=== PATIENT | female | born 1985 | race Caucasian/White ===

== ENCOUNTER → 2019-11-13 08:37 | Outpatient (CLI) | payer OTHER, SELFPAY ==
--- NOTE | 2019-11-13 08:39 | DI.US.S_ITS ---
LIMITED ULTRASOUND OF LEFT BREAST: 11/13/2019 CLINICAL: Palpable left breast lump. No prior exams were available for comparison. Color flow and Doppler ultrasound of the left breast 2 o'clock region were performed. [place] scale images of the real-time examination were reviewed. No significant abnormalities were seen sonographically in the left breast. There are a few tiny scattered simple cysts which in the setting of pain is suggestive of fibrocystic change. IMPRESSION: NEGATIVE There is no sonographic evidence of malignancy. There are a few tiny scattered simple cysts which in the setting of pain is suggestive of fibrocystic change. This exam was interpreted at Station ID: [id number]. Electronically Signed By: Eric Kirk M.D. jr/:11/13/2019 11:11:13 letter sent: Normal Exam Ultrasound BI-RADS: 1 Negative
--- NOTE | 2019-11-13 08:39 | DI.MG.S_ITS ---
BILATERAL DIGITAL DIAGNOSTIC MAMMOGRAM 3D/2D: 11/13/2019 CLINICAL: Baseline exam. Left breast lump. No prior exams were available for comparison. The tissue of both breasts is extremely dense, which lowers the sensitivity of mammography. There is a 0.9 cm oval mass with an obscured and indistinct margin in the RIGHT breast central to the nipple middle depth 4 cm from the nipple. There a 1 cm oval mass with an obscured and indistinct margin in the RIGHT breast at 11 o'clock anterior depth 2.5 cm from the nipple. There is a 1.1 cm oval mass with an obscured and indistinct margin in the RIGHT breast anterior depth superior region seen on the mediolateral oblique view only 2.5 cm from the nipple. There is a 1 cm oval mass with an obscured and indistinct margin in the LEFT breast at 7 o'clock middle depth 7 cm from the nipple. No other significant masses or calcifications are seen in either breast. IMPRESSION: INCOMPLETE: NEEDS ADDITIONAL IMAGING EVALUATION One mass in the left breast and three masses in the right breast, all indistinct with obscured margins. In a patient of this age, these most likely represent fibroadenomata, although this is not definitive. A bilateral breast ultrasound is recommended for further evaluation, and is scheduled to immediately follow this examination. This exam was interpreted at Station ID: [id number]. NOTE: For mammograms, a report in lay terms will be sent to the patient. Approximately 15% of breast malignancies will not be visualized mammographically. In the management of a palpable breast mass, a negative mammogram must not discourage biopsy of a clinically suspicious lesion. Electronically Signed By: Eric Kirk M.D. jr/:11/13/2019 09:23:58 ACR BI-RADS Category 0: Incomplete [id number]
--- NOTE | 2019-11-13 10:26 | DI.US.S_ITS ---
LIMITED ULTRASOUND OF RIGHT BREAST: 11/13/2019 CLINICAL: Abnormal mammogram right breast. Comparison is made to exams dated: 11/13/2019 ultrasound and 11/13/2019 mammogram - [facility]. Color flow and real-time ultrasound of the right breast 10-12 o'clock region were performed. [place] scale images of the real-time examination were reviewed. No significant abnormalities were seen sonographically in the right breast. There are a few tiny scattered simple cysts which in the setting of pain is suggestive of fibrocystic change. IMPRESSION: NEGATIVE There is no sonographic evidence of malignancy. There are a few tiny scattered simple cysts which in the setting of pain is suggestive of fibrocystic change. This exam was interpreted at Station ID: [id number]. Electronically Signed By: Eric Kirk M.D. jr/:11/13/2019 11:11:33 letter sent: Normal Exam Ultrasound BI-RADS: 1 Negative
== END ==
PROVIDERS: Family Provider Obstetrics & Gynecology; PCP Family Medicine; Referring Provider Family Medicine; Visit Provider Obstetrics & Gynecology
DX: R92.8 Other abnormal and inconclusive findings on diagnostic imaging of breast; N63.11 Unspecified lump in the right breast, upper outer quadrant; N63.24 Unspecified lump in the left breast, lower inner quadrant
CPT/HCPCS: 76642; 77066; G0279

== ENCOUNTER → 2019-11-14 | Outpatient (CLI) | payer OTHER, SELFPAY | PROVIDERS: Family Provider Obstetrics & Gynecology; PCP Family Medicine; Referring Provider Internal Medicine; Visit Provider Internal Medicine | DX: Z23 Encounter for immunization (principal) | CPT/HCPCS: 90471; 90686 ==

== ENCOUNTER → 2020-02-19 15:25 | Outpatient (CLI) | payer OTHER, SELFPAY ==
[2020-02-19] MEDS: COVID-19 VACC(MODERNA-1)/PF 100 MCG/0.5 ML VIAL IM (15:37)
== END ==
PROVIDERS: Family Provider Obstetrics & Gynecology; PCP Family Medicine; Visit Provider Internal Medicine
DX: Z23 Encounter for immunization (principal)
CPT/HCPCS: 0011A; 91301

== ENCOUNTER → 2020-03-17 09:53 | Outpatient (CLI) | payer OTHER, SELFPAY ==
[2020-03-17] MEDS: COVID-19 VACC #2, MRNA(MOD) 100 MCG/0.5 ML VIAL IM (09:58)
== END ==
PROVIDERS: Family Provider Obstetrics & Gynecology; PCP Family Medicine; Visit Provider Internal Medicine
DX: Z23 Encounter for immunization (principal)
CPT/HCPCS: 0012A; 91301

== ENCOUNTER → 2020-11-19 11:03 | Outpatient (CLI) | payer OTHER, SELFPAY | PROVIDERS: Family Provider Obstetrics & Gynecology; PCP Family Medicine; Referring Provider Internal Medicine; Visit Provider Internal Medicine | DX: Z23 Encounter for immunization (principal) | CPT/HCPCS: 90471; 90686 ==

== ENCOUNTER → 2020-12-18 09:00 | Outpatient (CLI) | payer OTHER, SELFPAY ==
[2020-12-18] MEDS: COVID-19 VACC #3, MRNA(MOD) 50 MCG/0.25 ML VIAL IM (09:04)
== END ==
PROVIDERS: Family Provider Obstetrics & Gynecology; PCP Family Medicine; Visit Provider Internal Medicine
DX: Z23 Encounter for immunization (principal)
CPT/HCPCS: 0013A; 91301

== ENCOUNTER → 2021-11-09 09:00 | Outpatient (CLI) | payer OTHER, SELFPAY | PROVIDERS: Family Provider Obstetrics & Gynecology; PCP Family Medicine; Referring Provider Internal Medicine; Visit Provider Internal Medicine | DX: Z23 Encounter for immunization (principal) | CPT/HCPCS: 90471; 90686 ==

== ENCOUNTER → 2022-11-17 08:12 | Outpatient (CLI) | payer OTHER, SELFPAY | PROVIDERS: Family Provider Obstetrics & Gynecology; PCP Family Medicine; Referring Provider Family Medicine; Visit Provider Family Medicine | DX: Z23 Encounter for immunization (principal) | CPT/HCPCS: 90471; 90686 ==

== ENCOUNTER → 2023-01-25 07:36 | Outpatient (CLI) | payer OTHER, SELFPAY ==
[2023-01-25 08:04] LABS: Add Manual Diff / Slide Review NO; Basophils Absolute Auto 0 /uL (0-100); Basophils Percent Auto 0.5 % (0-2); Eosinophils Absolute Auto 200 /uL (0-450); Eosinophils Percent Auto 2.4 % (2-4); Hemoglobin 13.9 g/dL (12.0-16.0); Lymphocytes Absolute Auto 1500 /uL (1100-4500); Lymphocytes Percent Auto 23.5 % (25-40); Mean Corpuscular HGB Conc 33.8 % (30-36); Mean Corpuscular Hemoglobin 28.8 PG (26-34); Mean Corpuscular Volume 85.4 fL (80-100); Monocytes Absolute Auto 700 /uL (0-900); Monocytes Percent Auto 10.8 % (3-14); Neutrophils Absolute Auto 4100 /uL (1500-7000); Neutrophils Percent Auto 62.8 % (50-75); Platelet Count 254 X10^3/uL (150-400); White Blood Cell Count 6.6 X10^3/uL (4.5-11.0)
[2023-01-25 08:28] LABS: Alanine Aminotransferase 16 IU/L (<35); Albumin 4.3 g/dL (3.5-5.0); Albumin Globulin Ratio 1.3 (1.0-2.8); Alkaline Phosphatase 44 U/L (38-126); Aspartate Aminotransferase 21 IU/L (14-36); BUN Creatinine Ratio 21.8 (6-22); Bilirubin Total 0.6 mg/dL (0.2-1.3); Blood Urea Nitrogen 17 mg/dL (7-17); Calcium 9.6 mg/dL (8.4-10.2); Carbon Dioxide 26 mmol/L (22-32); Chloride 105 mmol/L (98-107); Cholesterol 166 mg/dL (140-199); Estimated Glomerular Filt Rate > 60 mL/min (>60); Globulin 3.2 g/dL (1.7-4.1); Glucose 62 mg/dL (70-100); HDL Cholesterol 60 mg/dL (40-60); HEMOLYSIS < 15 (0-50); LDL Cholesterol Calculated 89 mg/dL (<100); Potassium 4.7 mmol/L (3.4-5.1); Sodium 138 mmol/L (137-145); Total Protein 7.5 g/dL (6.3-8.2); Triglycerides 84 mg/dL (35-150)
== END ==
PROVIDERS: Family Provider Obstetrics & Gynecology; PCP Family Medicine; Referring Provider Physician Assistant Medical; Visit Provider Physician Assistant Medical
DX: Z00.00 Encounter for general adult medical examination without abnormal findings (principal)
CPT/HCPCS: 36415; 80053; 80061; 84443; 85025

== ENCOUNTER → 2023-08-30 15:24 | Outpatient (CLI) | payer OTHER, SELFPAY ==
--- NOTE | 2023-08-30 15:27 | DI.RAD.S_ITS ---
PROCEDURE: XR KNEE LT 3V INDICATIONS: left knee pain TECHNIQUE: 3 views of the knee were acquired. COMPARISON: None. FINDINGS: Bones: No fractures or dislocations. No patellar subluxation. Joint spaces are fairly well preserved. No suspicious bony lesions. Soft tissues: Small suprapatella joint effusion. No suspicious soft tissue calcifications. IMPRESSION: No acute left knee fracture or dislocation. Small suprapatellar joint effusion. Dictated by: Benny Butler M.D. on 08/31/2023 at 9:00 Approved by: Benny Butler M.D. on 08/31/2023 at 9:00
== END ==
LOC: RAD 15:26
PROVIDERS: Family Provider Obstetrics & Gynecology; PCP Family Medicine; Referring Provider Anesthesiology; Visit Provider Anesthesiology
DX: M25.462 Effusion, left knee (principal); M25.562 Pain in left knee
CPT/HCPCS: 73562

== ENCOUNTER → 2023-11-22 19:38 | Outpatient (CLI) | payer OTHER, SELFPAY | PROVIDERS: Family Provider Obstetrics & Gynecology; PCP Family Medicine; Referring Provider Internal Medicine; Visit Provider Internal Medicine | DX: Z23 Encounter for immunization (principal) | CPT/HCPCS: 90471; 90656 ==